=== PATIENT | male | born 1975 | race Caucasian/White ===

== ENCOUNTER → 2016-10-25 | Outpatient (CLI) | payer BC ==
[~2016-10-25] MED LIST: ISOVUE-370 76% 100ML VIAL (Q9967) As Ordered ONE
--- NOTE | 2016-10-25 12:01 | REP ---
CT CHEST WITH IV CONTRAST: 10/25/[address] abdomen and pelvis 10/20/2016 performed at [facility]. This study demonstrated sub cm pulmonary pulmonary nodules in the lung bases. TECHNIQUE: Following dynamic IV contrast administration with 75 mL Isovue 370 mg/mL, 3 mm spiral axial sections were performed through the chest FINDINGS: The thoracic aorta is without aneurysm or dissection. The heart is of normal size. There are a few small nonspecific mediastinal nodes. There are no pathologically enlarged hilar nodes. 5 mm calcified granuloma is present within the inferior aspect of the right upper lobe, image 42 series 201 . 4 mm calcified granuloma present within the right middle lobe on image 53 series 201 also stable. There are a few calcified left segment left lower lobe , largest 3 mm diameter on image 80 series 201. There are few bibasilar tiny noncalcified nodes, also stable. There is mild to moderate diffuse fatty infiltration of liver. Visualized portions of the spleen pancreas gallbladder adrenal glands are normal. IMPRESSION: Bilateral lower lobe stable sub cm nodules, largest 5 mm within the inferior aspect of right upper lobe. Most of the nodules are calcified yet not all calcified. Recommend follow-up CT chest in 12 months. There is mild to moderate diffuse fatty infiltration of liver. Visualized portions of the spleen, pancreas, gallbladder, adrenal glands are normal. Signed by Renetta Chi MD 10/25/2016 05:19 P
== END ==
LOC: M RAD 10:37
PROVIDERS: ATTEND Family Medicine
DX: R91.8 Other nonspecific abnormal finding of lung field (principal)
CPT/HCPCS: 71260; Q9967

== ENCOUNTER → 2016-11-23 | Outpatient (REF) | payer BC | LOC: M SFHCLERA 10:19 | PROVIDERS: ATTEND Nurse Practitioner Family | DX: J02.9 Acute pharyngitis, unspecified (principal) ==

== ENCOUNTER → 2017-08-04 | Outpatient (REF) | payer BC | LOC: M LAB REF 16:22 | PROVIDERS: ATTEND Physician Assistant | DX: Z11.3 Encounter for screening for infections with a predominantly sexual mode of transmission (principal) ==

== ENCOUNTER → 2018-05-01 | Outpatient (CLI) | payer BC | LOC: M LRY 10:11 | DX: S99.921A Unspecified injury of right foot, initial encounter (principal); X58.XXXA Exposure to other specified factors, initial encounter; Y92.89 Other specified places as the place of occurrence of the external cause | CPT/HCPCS: G0463 ==

== ENCOUNTER → 2019-09-14 | Outpatient (REF) | payer BC ==
[2019-09-14 22:01] LABS: CHLAMYDIA DNA AMPLIFICATION NEGATIVE (NEGATIVE); GC DNA AMPLIFICATION NEGATIVE (NEGATIVE)
== END ==
LOC: M SFHCLERA 15:27
PROVIDERS: ATTEND Nurse Practitioner Family
DX: R30.0 Dysuria (principal)

== ENCOUNTER → 2022-03-04 | Outpatient (REF) | LOC: M PLAIMG 08:45 | PROVIDERS: ATTEND Internal Medicine | DX: R93.0 Abnormal findings on diagnostic imaging of skull and head, not elsewhere classified (principal); R06.02 Shortness of breath ==

== ENCOUNTER → 2022-04-05 | Outpatient (CLI) | payer BC ==
[~2022-04-05] MED LIST changes: -ISOVUE-370 76% 100ML VIAL (Q9967) As Ordered ONE; +PROHANCE 279.3MG/ML 5ML VIAL As Ordered ONE
== END ==
LOC: M RAD 10:09
PROVIDERS: ATTEND Family Medicine
DX: R93.0 Abnormal findings on diagnostic imaging of skull and head, not elsewhere classified (principal)
CPT/HCPCS: 70553; A9576

== ENCOUNTER → 2023-01-26 | Outpatient (CLI) | payer OTHER | LOC: M PLAIMG 14:19 | PROVIDERS: ATTEND Nurse Practitioner Family | DX: J32.9 Chronic sinusitis, unspecified (principal) ==